=== PATIENT | male | born 1950 | race Caucasian/White ===

== ENCOUNTER 2024-03-20 19:23 | Emergency (ER) | payer MEDICARE, OTHER ==
[2024-03-20 19:41] VITALS: BP 121/66; O2SAT 95
--- NOTE | 2024-03-20 19:56 | ED Physician Documentation ---
History of Present Illness - Stated complaint Stated Complaint: L ARM LAC - Chief complaint Chief Complaint: Laceration - Additonal information Additional information: Patient is a 73-year-old male presenting to the emergency department with left forearm laceration. Laceration is approximately 3 cm in length. He is active bleeding from it. Injury occurred while he wished trying to catch a lamp that fell over and broke and cut his left forearm. He denies any feelings of foreign bodies. No numbness or tingling in his extremities. He has his tetanus up-to-date last year. Patient is right-handed. PD PAST MEDICAL HISTORY - Past Medical History Past Medical History: Yes Cardiovascular: Hypertension, High cholesterol - Past Surgical History Past Surgical History: Yes General: Appendectomy Cardiovascular: Coronary stent - Present Medications Home Medications: Ambulatory Orders Medication Instructions Recorded Confirmed Aspirin [Aspir-Low] 81 mg DAILY 08/01/15 08/01/15 Ezetimibe [Zetia] 10 mg DAILY 08/01/15 08/01/15 HYDROcod/ACETAM 5/325 [[place] 5/325] 1 - 2 ea PO Q6H PRN #15 tablet 08/01/15 Rosuvastatin Calcium [Crestor] 40 mg DAILY 08/01/15 08/01/15 Verapamil ER [Calan SA] 240 mg DAILY 08/01/15 08/01/15 - Allergies Allergies/Adverse Reactions: Allergies Allergy/AdvReac Type Severity Reaction Status Date / Time No Known Drug Allergies Allergy Verified 03/20/24 19:31 - Social History Does the pt smoke?: No Smoking Status: Never smoker Does the pt drink ETOH?: Yes Does the pt have substance abuse?: No - Immunizations Immunizations are current?: Yes PD ED PE NORMAL - Vitals Vital signs reviewed: Yes - General General: Alert and oriented X 3 - HEENT HEENT: Atraumatic - Cardiac Cardiac: RRR, No murmur, No gallop, No rub - Respiratory Respiratory: No respiratory distress, Clear bilaterally - Derm Derm: Other (Laceration to left forearm approximately 3 cm in size no signs of contamination minimal bleeding noted on examination no pulsatile bleeding. Digits 1 through 5 sensation intact full range of motion at all DIP PIP and MCP joints of 1-5. FUll ROM of wrist intact. Radial pulses 2+.) - Neuro Neuro: Alert and oriented X 3 Eye Opening: Spontaneous Motor: Obeys Commands Verbal: Oriented GCS Score: 15 Results - Vitals Vitals: Vital Signs - 24 hr 03/20/24 19:31 Temperature 36.5 C Heart Rate 53 L Respiratory 16 Rate Blood Pressure 121/66 O2 Saturation 95 Oxygen O2 Source Room air Procedures - Laceration (location) Upper extremity left Anterior Length in cm: 3 Wound type: Linear Neurovascular status: Sensory intact, Motor intact, Vascular intact Tendon involvement: Tendon intact Anesthesia: Lidocaine 1% Wound preparation: Irrigated copiously NS Skin layer closure: Nylon, Sutures - enter # (9) Other: Patient tolerated well, No complications, Dressing applied, Tetanus UTD PD Medical Decision Making - ED course Complexity details: reviewed old records, reviewed results, re-evaluated patient ED course: Patient is a 73-year-old male presenting to the emergency department with laceration to left forearm after trying to catch a lamp when it fell and cutting his left forearm after it broke. Patient denies any numbness or tingling in his extremity. No feelings of foreign body in left forearm. Patient is on aspirin but no other blood thinners. He notes his last tetanus was 1 year ago as his PCP updated it. Patient notes he is right-handed. Vital stable on arrival. Physical exam shows laceration approximately 3 cm linear across anterior forearm. No signs of vascular injury. Minimal bleeding noted on exam. Digits 1 through 5 full range of motion sensation intact good capillary refill. Full range of motion of left wrist. Radial pulse 2+. Wound was sutured here in the emergency department with 9 interrupted sutures. Patient tolerated procedure well. Wound was wrapped with Telfa and gauze. Patient instructed to rewrap in 24 hours and to apply topical antibiotic. He was instructed to watch for any redness swelling warmth fevers discharge. These are signs of infection he was instructed to return with any of these or any other new or worsening symptoms. He will have sutures removed in 7 to 10 days and will follow-up with his PCP as he has an appointment in 10 days already scheduled. Patient agreeable with this plan Departure - Departure Disposition: 01 Home, Self Care Clinical Impression: Laceration of left forearm Condition: Good Instructions: ED Laceration All Comments: Come back for any signs of infection which would include: Redness, swelling, drainage, increased pain, or fevers. You can wash it soap and water. Keep it covered and moist with bacitracin ointment which is available over the counter; avoid neosporin. Follow-up with your physician in [10] days for suture removal.You can have sutures removed at urgent care or you can return here if you develop any of the symptoms listed above return to emergency department. Follow-up for wound recheck with your PCP for your appointment in 10 to 14 days.Keep wound clean dry you can let water run over it but do not soak it in water.
[2024-03-20] MEDS: lidocaine 1% 20 ML MDV SUBQ ONE (20:16)
== END 2024-03-20 20:18 | disposition home or self-care (01) ==
LOC: ED 19:23
DX: S51.812A Laceration without foreign body of left forearm, initial encounter (principal); W25.XXXA Contact with sharp glass, initial encounter; I10 Essential (primary) hypertension; E78.00 Pure hypercholesterolemia, unspecified; Z79.82 Long term (current) use of aspirin
CPT/HCPCS: 12002; 99283